=== PATIENT | male | born 2000 | race Caucasian/White ===

== ENCOUNTER → 2024-12-04 09:45 | Outpatient (BNV) | payer BC, SELFPAY | PROVIDERS: Visit Provider Psychiatry & Neurology Psychiatry | DX: F43.10 Post-traumatic stress disorder, unspecified (principal); F41.3 Other mixed anxiety disorders; F33.1 Major depressive disorder, recurrent, moderate; Z63.4 Disappearance and death of family member | CPT/HCPCS: 90792 ==

== ENCOUNTER 2024-12-28 10:00 | Outpatient (RCR) | payer BC, SELFPAY ==
[2024-12-03 13:23] VITALS: BP 114/70; PULSE 68; TEMP 37.2
[2024-12-03 13:26] VITALS: BMI 29.3
--- NOTE | 2024-12-03 15:01 | PC.ADMIT ---
Patient is a 24 year old engaged male who was referred to [facility] by [facility] crisis. Patient stated, My fiance brought me to crisis at [facility] because I was experiencing a pretty bad panic attack at the time the most severe at the time and was referred to here . Patient has been struggling with grief over his brothers passing on patients birthday on 2000. See Integrative Assessment for more information. Patient feeling increased anxiety, depression, feelings of guilt, helplessness, decreased confidence and self esteem. He is currently on an unpaid medical leave from work. 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 He lives with his fiance who is supportive. Patient is alert and oriented x4. He is calm and cooperative. He presented with depressed mood and affect. He denied SI, no HI. He was given a copy of his safety plan if needed. Medications updated with patient and patient's pharmacy. Patient reports he is taking medications as prescribed. He denied current of past use of any substance with exception of trying Marijuana edibles three times. [ End ]
--- NOTE | 2024-12-03 15:10 | HO.PHP ---
Clients case was opened and reviewed in teams today.
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
--- NOTE | 2024-12-09 07:57 | HO.PHP ---
[facility] staff member faxed the referral over for med management to [facility] and is awaiting on an appointment date and time.
--- NOTE | 2024-12-11 10:51 | HO.PHPPROGNO ---
Subjective Subjective Date of Service: 12/11/24 Reason For Visit: depression Interim History: less racing thoughts feeling a bit more muted, in moment- is better - part with inc sertraline used ativan sparingly - one situation felt like rescue- felt panicky- yesterday not able to be here had to bring dog to ER , herniated disc didn't want to be alone, brother lived with my dad- hard to be in that space but good to be with dad- Sleep better- usually wake up shoulder pain- unrelated prior injury- improving irregularities sleeping longer, nightmares faded appetite better- had lost 10-15lb gained back - Medication Compliance: Yes Side effects from medications: No Attending Groups: Yes Review of Systems Acute medical concerns: No Medical Review of Systems: unchanged Mental Status Exam Mental Status Exam Patient Appearance: Well Grooomed and Appropriate Patient Orientation: Person, Place, Time and Situation Level of Consciousness: Awake and Appropriate Patient Behavior: Appropriate, Cooperative and Good Eye Contact Mood Description: Calm Affect Description: Appropriate Patient Cognition Impaired: No Ability to Follow Directions: Good Speech Pattern: Clear Hallucinations: None Delusions: Not Present Thought Process: Intact Thought Content: positive for Intact and positive for Goal Oriented Depressive Symptoms: Difficulty Sleeping Judgement: Good Diagnostics Vital Signs (24Hr): BMI result Body Mass Index 29.3 Assessment & Plan Assessment & Plan (1) Recent bereavement: Status: Acute Code(s): Z63.4 - Disappearance and of family member (2) Other mixed anxiety disorders: Status: Acute Code(s): F41.3 - Other mixed anxiety disorders Plan complicated bereavement due to sudden and unexpected loss of older brother- after he left him from a visit- seems to be metabolizing feelings better and less isolating, apt resolved- tolerating current medications Patient educated on: diagnosis, medication risk/benefits and therapeutic strategies Informed Consent: understands Reason for contiued partial hosp. stay Substantial Risk for: rapid decompensation Certification I certify that partial hospital treatment is medically necessary due to the symptoms and problems resulting from the patient's mental illness and the failure to treat the patient at the partial hospital level of care would likely result in the patient requiring inpatient psychiatric care which could not be prevented at a less intensive level of care. Total time managing care of this patient today ____ minutes. Discharge Plan Discharge Attending provider: Nae Puentes Medications: New lorazepam 0.5 mg tablet 0.25 - 0.5 mg PO BID PRN (Reason: anxiety) Qty: 14 0RF Continued propranolol 10 mg tablet 10 mg PO TID PRN (Reason: Anxiety) Changed sertraline 50 mg Tablet 75 mg PO DAILY Qty: 45 0RF Discontinued clonazepam 0.5 mg Tablet 0.5 mg PO BID Rx Instructions: Filled for two weeks on 11/10/24. No Action melatonin 1 mg Tablet 2 mg PO BEDTIME PRN (Reason: Insomnia) Rx Instructions: OTC Stand Alone Forms: Patient Portal Discharge page Print Language: Bahamian
--- NOTE | 2024-12-11 14:05 | HO.PHP ---
Clinician met with the patient after he experienced a panic attack during the last group session of the day. He reported to feel triggered by the topic (music) because his brother (who recently passed) was a musician. Chano reported that his brother was in a band and that he recorded a couple of songs that he has been unable to listen to. He reported that was unaware that he was going to be triggered the way that he did. The clinician suggested him to practice a breathing exercise and he did so. After that a brief conversation about his plan for the weekend took place and he reported that was going to take care of his parents dog and will going to be working on his garden with his fiance planting some vegetables. He reported to feel better and indicated that wanted to breath fresh air prior to leaving. No safety concerns were reported and he was calm by the time he left.
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
--- NOTE | 2024-12-25 19:31 | HO.PHPPROGNO ---
Subjective Subjective Date of Service: 12/25/24 Reason For Visit: depression Interim History: Patient seen for follow-up. He reports having gotten extension at the program and will be here through Saturday. ?So I am feeling good will be ready? Reports last week was difficult did not feel ready he has benefitted from more time in the program to process loss of his brother he also notices that opposing himself to things specially discussions about his grief and things that are distressful as a form of exposure therapy is been helpful and normalizing his feelings. He has not needed to utilize any of the PRN medications for anxiety other than propranolol. Zoloft is at 75 mg which he is tolerating denies any adverse effects he has a new psych provider appointment on 01/18. Denies any SI HI AH or VH. Medication Compliance: Yes Side effects from medications: No Attending Groups: Yes Review of Systems Acute medical concerns: No Mental Status Exam Mental Status Exam Narrative: Alert, oriented, in no acute distress. Calm, cooperative, engaged. No psychomotor agitation or neurovegetative retardation. Eye contact maintained. Mood less depressed, affect brightens on contact. Speech normal. Thought process linear, coherent. Thought content related to stressors, [id number], denies SI or HI. No paranoia or delusional content elicited. No evidence of psychosis. Insight and judgment good. Diagnostics Vital Signs (24Hr): BMI result Body Mass Index 29.3 Assessment & Plan Assessment & Plan (1) PTSD (post-traumatic stress disorder): Status: Acute Code(s): F43.10 - Post-traumatic stress disorder, unspecified (2) Other mixed anxiety disorders: Status: Acute Code(s): F41.3 - Other mixed anxiety disorders (3) MDD (major depressive disorder), recurrent episode, moderate: Status: Acute Code(s): F33.1 - Major depressive disorder, recurrent, moderate (4) Recent bereavement: Status: Acute Code(s): Z63.4 - Disappearance and of family member Plan Continue PHP continue sertraline 75 mg qd continue propranolol 10 mg TID prn anxiety continue other regular medications: melatonin 2 mg prn sleep may consider low dose risperdal (0.125 mg) to help with rumination avel in evenings if lorazepam not helpful Routine lab work ordered as indicated EKG, routine for baseline QTc for medication considerations as indicated UDS as indicated VS reviewed: afebrile, BP 114/70;?68 bpm Continue to monitor Patient educated on: diagnosis and medication risk/benefits Informed Consent: understands Reason for contiued partial hosp. stay Substantial Risk for: med/psych decompensation Certification I certify that partial hospital treatment is medically necessary due to the symptoms and problems resulting from the patient's mental illness and the failure to treat the patient at the partial hospital level of care would likely result in the patient requiring inpatient psychiatric care which could not be prevented at a less intensive level of care. Total time managing care of this patient today ____ minutes. Discharge Plan Discharge Attending provider: Nae Puentes Medications: Continued melatonin 1 mg Tablet 2 mg PO BEDTIME PRN (Reason: Insomnia) Rx Instructions: OTC Changed propranolol 10 mg tablet 10 mg PO BID PRN (Reason: Anxiety) Qty: 45 0RF sertraline 50 mg Tablet 75 mg PO DAILY Qty: 45 0RF Discontinued clonazepam 0.5 mg Tablet 0.5 mg PO BID Rx Instructions: Filled for two weeks on 11/10/24. Stand Alone Forms: Patient Portal Discharge page Patient Education: Depression (ED), Depression (DC) Print Language: Jamaican
--- NOTE | 2024-12-31 21:58 | P.PNPSP_ITS ---
Subjective Subjective Date of Service: 12/31/24 Reason For Visit: depression Diagnostics Vital Signs (24Hr): BMI result Body Mass Index 29.3 Assessment & Plan Certification I certify that partial hospital treatment is medically necessary due to the symptoms and problems resulting from the patient's mental illness and the failure to treat the patient at the partial hospital level of care would likely result in the patient requiring inpatient psychiatric care which could not be prevented at a less intensive level of care. Total time managing care of this patient today ____ minutes. Discharge Plan Discharge Attending provider: Nae Puentes Medications: New sertraline 100 mg tablet 100 mg PO DAILY Qty: 30 0RF Continued melatonin 1 mg Tablet 2 mg PO BEDTIME PRN (Reason: Insomnia) Rx Instructions: OTC Changed propranolol 10 mg tablet 10 mg PO BID PRN (Reason: Anxiety) Qty: 45 0RF Discontinued clonazepam 0.5 mg Tablet 0.5 mg PO BID Rx Instructions: Filled for two weeks on 11/10/24. sertraline 50 mg Tablet 50 mg PO DAILY Stand Alone Forms: Patient Portal Discharge page Patient Education: Depression (ED), Depression (DC), Grief and Loss (ED), Grief and Loss (DC) Print Language: Solomon Islander
== END 2024-12-28 23:59 | disposition home or self-care (01) ==
LOC: HO.PHPA 10:00
PROVIDERS: Visit Provider Psychiatry & Neurology Psychiatry
DX: F43.10 Post-traumatic stress disorder, unspecified (principal); F41.3 Other mixed anxiety disorders; F33.1 Major depressive disorder, recurrent, moderate; Z63.4 Disappearance and death of family member; Z79.899 Other long term (current) drug therapy
CPT/HCPCS: 90853